=== PATIENT | female | born 1950 | race Two or more races ===

== ENCOUNTER 2022-07-20 00:30 | Inpatient (IN) | payer MEDICARE, OTHER ==
[~2022-07-20] VITALS: Ht 165.1 cm; Wt 82.1 kg
--- NOTE | 2022-07-20 00:38 | NUR ---
BIBRA FROM HOME C/O PALPITATIONS. PT A/OX4. TOLERATING R/A AT 97%. WITH NO RESP DISTRESS. AMBULATORY WITH STEADY GAIT. CONNECTED PT TO POX AND MONITOR. SAFETY MEASURES IN PLACE.
--- NOTE | 2022-07-20 00:55 | NUR ---
URINE COLLECTED AND SENT TO LAB
[2022-07-20] MEDS ORDERED: DILTIAZEM HCL 30 MG TABLET PO ONE (01:00)
--- NOTE | 2022-07-20 01:00 | NUR ---
R FARIBA #18G S/L BLOOD COLLECTED AND SENT TO LAB
[2022-07-20] MEDS ORDERED: DILTIAZEM HCL 30 MG TABLET ONE (01:06)
[2022-07-20 01:15] LABS: BASOPHILS # (AUTO) 0.1 K/uL (0.0-0.2); BASOPHILS % (AUTO) 0.9 % (0.0-2.0); EOSINOPHILS % (AUTO) 2.8 % (0.0-6.0); HEMATOCRIT 42 % (33-45); LYMPHOCYTES # (AUTO) 3.1 K/uL (0.8-4.8); LYMPHOCYTES % (AUTO) 37.8 % (20.0-44.0); MEAN CORPUSCULAR HGB CONC 34 g/dl (31.0-36.0); MEAN CORPUSCULAR VOLUME 84 fL (82-100); MONOCYTES # (AUTO) 0.6 K/uL (0.1-1.30); MONOCYTES % (AUTO) 6.7 % (2.0-12.0); NEUTROPHILS # (AUTO) 4.3 K/uL (1.8-8.9); NEUTROPHILS % (AUTO) 51.8 % (43.0-81.0); PLATELET COUNT (AUTO) 251 K/uL (150-450); RED BLOOD CELL COUNT(AUTO) 4.94 MIL/uL (4.0-5.2); WHITE BLOOD COUNT (AUTO) 8.3 K/uL (4.3-11.0)
[2022-07-20 01:26] LABS: CALCIUM, SERUM 9.4 mg/dL (8.5-10.1); CARBON DIOXIDE 24 mmol/L (21-32); CHLORIDE 105 mmol/L (98-107); GLUCOSE 116 mg/dL (74-106); POTASSIUM 3.7 mmol/L (3.5-5.1); SODIUM SERUM 138 mmol/L (136-145); UREA NITROGEN, BLOOD 17 mg/dL (7-18)
[2022-07-20] MEDS ORDERED: MAG HYDROX/AL HYDROX/SIMETH 30 ML UDC PO PRN (03:00)
[2022-07-20] MEDS ORDERED: ACETAMINOPHEN 325 MG TABLET PO PRN (03:00)
[2022-07-20] MEDS ORDERED: ZOLPIDEM TARTRATE 5 MG TABLET PO PRN (03:00)
[2022-07-20] MEDS ORDERED: Z GUARD REMEDY 4 OZ OINT TP PRN (03:00)
[2022-07-20] MEDS ORDERED: MAGNESIUM HYDROXIDE 30 ML UDC PO PRN (03:00)
[2022-07-20] MEDS ORDERED: ONDANSETRON HCL/PF 4 MG/2 ML VIAL IVP PRN (03:00)
[2022-07-20 04:00] VITALS: BP 142/58
--- NOTE | 2022-07-20 04:09 | NUR ---
RECIEVED 655-5
[2022-07-20] MEDS ORDERED: PANT40TA49 PO (04:15)
[2022-07-20] MEDS ORDERED: ATEN50TA PO ×2 (04:15→13:52)
--- NOTE | 2022-07-20 04:21 | NUR ---
REPORT GIVEN TO SANTIAGO Gan RN FOR KATALINA
[2022-07-20 04:37] VITALS: BP 137/63
--- NOTE | 2022-07-20 04:49 | NUR ---
PT TRANSFERRED TO [facility] VIA ACLS PROTOCOL. VSS. ALL BELONGINGS WITH PT. PT TOLERATED TRANSFER WELL.
--- NOTE | 2022-07-20 05:15 | NUR ---
MS/TELE/RN AT AROUND 0430, RECEIVED PATIENT FROM . VIA [facility], PATIENT WAS AWAKE, ALERT AND ORIENTED, NO C/O PAIN, NO SIGNS OF DISTRESS NOTED, MADE COMFORTABLE IN BED, SKIN ASSESSMENT DONE PER PROTOCOL WITH PATIENT'S CONSENT, ADMISSION HISTORY WAS OBTAINED FROM THE PATIENT, PLAN OF CARE WAS DISCUSSED, VERBALISED UNDERSTANDING AND AGREEMENT TO THE PLAN, TAUGHT THE USE OF CALL LIGHT AND PLACED IT AT BEDSIDE WITHIN REACH, FALL PRECAUTIONS PER PROTOCOL WAS IMPLEMENTED, NEEDS ATTENDED, WILL MONITOR.
--- NOTE | 2022-07-20 07:10 | NUR ---
FLOOR ASSEMBLER OPENING NOTES RECEIVED PATIENT AWAKE IN BED, A/Ox2, ON ROOM AIR, NO S/S OF RESPIRATORY DISTRESS. PATIENT ON TELE MONITORING SHOWING SINUS RHYTHM HR 60. NO S/S OF CARDIAC DISTRESS OR DISCOMFORT. IV ACCESS R HAND #[id number] SL, INTACT AND PATENT. NO S/S OF INFILTRATION. AMBULATORY HAS BATHROOM PRIVILEGES. SKIN IS INACT. SAFETY MEASURES IN PLACE: BED LOCKED AND IN LOWEST POSITION, BED ALARM ON, HOB ELEVATED, SIDE RAILS UP x2, CALL LIGHT WITHIN REACH. WILL CONTINUE TO MONITOR.
[2022-07-20 08:00] VITALS: BP 133/77
[2022-07-20] MEDS ORDERED: APIXABAN 5 MG TABLET PO SCH (09:00)
[2022-07-20] MEDS ORDERED: PANTOPRAZOLE 40 MG TABLET.DR PO SCH (12:00)
[2022-07-20] MEDS ORDERED: ATENOLOL 50 MG TABLET PO SCH (12:00)
[2022-07-20 12:04] VITALS: BP 133/77
--- NOTE | 2022-07-20 15:05 | NUR ---
HABITAT MANAGEMENT COORDINATOR NOTES PATIENT DISCHARGE HOME, A/Ox4 ABLE TO MAKE NEEDS KNOWN. PATIENT STABLE ON ROOM AIR, NO S/S OF RESPIRATORY DISTRESS. PATIENT HAS NO COMPLAINT OF CHEST PAIN. PATIENT DISCHARGE INSTRUCTIONS AND HEALTH TEACHINGS GIVEN AND EXPLAINED TO PATIENT. PATIENT VERBALIZED UNDERSTANDING. IV ACCESS REMOVED, PRESSURE DRESSING APPLIED. NO S/S OF BLEEDING. ID BAND REMOVED. SKIN INTACT. PATIENT LEFT UNIT @1430 ACCOMPANIED BY LUZ MARIA LE. CHARGE NURSE AND MD AWARE OF DISCHARGE.
[2022-07-21] MEDS ORDERED: ATENOLOL 50 MG TABLET PO SCH (09:00)
== END 2022-07-20 14:42 | disposition home or self-care (01) | DRG 309 ==
LOC: ER 00:32 → TELE 04:12
PROVIDERS: ADMIT Internal Medicine; ATTEND Internal Medicine
DX: I48.0 Paroxysmal atrial fibrillation (principal); D68.69 Other thrombophilia; Z20.822 Contact with and (suspected) exposure to COVID-19; K21.9 Gastro-esophageal reflux disease without esophagitis; Z86.79 Personal history of other diseases of the circulatory system; Z79.899 Other long term (current) drug therapy
CPT/HCPCS: 36415; 71045-TC; 80048-TC; 84484-TC; 85025-TC; 87081-TC; 93307-TC; C9803; G0378